=== PATIENT | female | born 1935 | race Two or more races ===

== ENCOUNTER 2022-07-14 12:12 | Day surgery (SDC) | payer OTHER ==
[2022-07-11 13:33] LABS: Basophils # (auto) 0.1 10 ^3/uL (0-0.2); Basophils % (auto) 1.2 % (0.0-2.0); Eosinophils # (auto) 0.2 10 ^3/uL (0-0.8); Eosinophils % (auto) 2.9 % (0.0-7.0); Hematocrit 33.7 % (36.0-46.0); Hemoglobin 11.2 g/dL (12.2-16.2); Lymphocytes # (auto) 1.6 10 ^3/uL (0.4-5.4); Lymphocytes % (auto) 23.9 % (10.0-50.0); Mean Corpuscular Hemoglobin 29.6 pg (28.0-32.0); Mean Corpuscular Hgb Conc. 33.2 g/dL (32.0-36.0); Mean Corpuscular Volume 89.4 fL (80.0-100.0); Monocytes # (auto) 0.4 10 ^3/uL (0-1.3); Neutrophils # (auto) 4.4 10 ^3/uL (1.6-8.6); Nucleated Red Blood Cells % 0.1 %; Red Blood Cells 3.77 10^6/uL (4.0-5.20); Red Cell Distribution Width 18.4 % (11.8-14.3); White Blood Cell 6.7 10^3/uL (4.4-10.8)
[2022-07-11 13:49] LABS: INR 0.94 (0.9-1.15); Partial Thromboplastin Time 24.8 sec (24.6-33.4)
[2022-07-11 14:10] LABS: Albumin 3.4 g/dL (3.4-5.0); Calcium 8.9 mg/dL (8.5-10.1); Potassium 3.8 mmol/L (3.5-5.1)
[2022-07-11 14:19] LABS: BUN/Creatinine Ratio 33.9 (10.0-20.0); Bilirubin, Total 0.4 mg/dL (0.2-1.0); Total Protein 6.6 g/dL (6.4-8.2)
[~2022-07-14] VITALS: Ht 154.9 cm; Wt 63.5 kg
[~2022-07-14 12:12] MED LIST: ACET325T82 PO; ACET5SOL5 PO; ALLO300T2 PO; ASPI1TAB20 PO; ATOR10TA PO; FURO1TAB33 PO; LEV50T PO; LISI20TA28 PO; MELA3TAB27 PO; METF-489 PO; OMEP20TA PO; ZINC50TA7 PO
[2022-07-14] MEDS ORDERED: LIDOCAINE VISCOUS 2% 15ML UD ONE (12:36)
[2022-07-14] MEDS ORDERED: diphenhdrAMINE HCL 50 MG/1 ML VL ONE (12:37)
[2022-07-14] MEDS: fentaNYL CITRATE 100 MCG/2 ML VL ONE ×2 (14:03→14:08)
[2022-07-14] MEDS: MIDAZOLAM HCL 2MG/2ML 2ml VIAL (1mg/ml) ONE ×2 (14:03→14:08)
[2022-07-14 15:03] VITALS: BP 116/49
== END 2022-07-14 15:05 | disposition home or self-care (01) ==
LOC: GI 12:12
PROVIDERS: ATTEND Internal Medicine Gastroenterology
DX: D64.9 Anemia, unspecified (principal); Z87.11 Personal history of peptic ulcer disease; K29.50 Unspecified chronic gastritis without bleeding; K44.9 Diaphragmatic hernia without obstruction or gangrene; Z20.822 Contact with and (suspected) exposure to COVID-19; E11.9 Type 2 diabetes mellitus without complications; Z79.84 Long term (current) use of oral hypoglycemic drugs
CPT/HCPCS: 36415; 43239; 80053; 82962; 85025; 85610; 85730; J1200; J2250; J3010; U0003; 99152

== ENCOUNTER → 2022-07-31 | Outpatient (CLI) | payer OTHER | END | disposition home or self-care (01) | LOC: LAB 06:56 | PROVIDERS: ATTEND Internal Medicine Gastroenterology | DX: R19.7 Diarrhea, unspecified (principal) | CPT/HCPCS: 85048; 87045; 87177; 87427; 87493 ==

== ENCOUNTER 2022-12-22 17:19 | Inpatient (IN) | payer OTHER ==
[~2022-12-22] VITALS: Ht 157.5 cm; Wt 68.0 kg
[~2022-12-22 17:19] MED LIST changes: -LISI20TA28 PO; +LISI20TA56 PO
[2022-12-22] MEDS: HYDROcodone-ACET 5/325MG TAB PO ONE ×2 (19:27→19:43)
[2022-12-22 20:22] LABS: Basophils # (auto) 0.1 10 ^3/uL (0-0.2); Basophils % (auto) 0.7 % (0.0-2.0); Eosinophils # (auto) 0.1 10 ^3/uL (0-0.8); Eosinophils % (auto) 1.7 % (0.0-7.0); Hematocrit 41.2 % (36.0-46.0); Hemoglobin 13.6 g/dL (12.2-16.2); Lymphocytes # (auto) 1.8 10 ^3/uL (0.4-5.4); Lymphocytes % (auto) 22.4 % (10.0-50.0); Mean Corpuscular Hemoglobin 30.1 pg (28.0-32.0); Mean Corpuscular Hgb Conc. 33.1 g/dL (32.0-36.0); Mean Corpuscular Volume 90.8 fL (80.0-100.0); Monocytes # (auto) 0.5 10 ^3/uL (0-1.3); Monocytes % (auto) 6.6 % (0.0-12.0); Neutrophils # (auto) 5.6 10 ^3/uL (1.6-8.6); Neutrophils % (auto) 68.6 % (37.0-80.0); Nucleated Red Blood Cells % 0.1 %; Red Blood Cells 4.54 10^6/uL (4.0-5.20); Red Cell Distribution Width 16.2 % (11.8-14.3); White Blood Cell 8.1 10^3/uL (4.4-10.8)
[2022-12-22 20:52] LABS: Alanine Aminotransferase 39 U/L (7-40); Albumin 4.4 g/dL (3.2-4.8); Alkaline Phosphatase 151 U/L (46-116); Anion Gap 8 (5-15); Aspartate Aminotransferase 17 U/L (13-40); BUN/Creatinine Ratio 50.7 (10.0-20.0); Bilirubin, Total 0.6 mg/dL (0.2-1.0); Blood Urea Nitrogen 71 mg/dL (9-23); Calcium 9.6 mg/dL (8.7-10.4); Carbon Dioxide 25 mmol/L (20-30); Chloride 104 mmol/L (98-107); Glucose 119 mg/dL (74-106); Sodium 137 mmol/L (136-145); Total Protein 6.6 g/dL (5.7-8.2)
[2022-12-22 21:30] VITALS: PULSE 60; RESP 13; O2SAT 95
[2022-12-22] MEDS ORDERED: SODIUM CHLORIDE 0.9% 1,000 ML IV ONE (22:15)
[2022-12-22] MEDS ORDERED: HYDROcodone-ACET 5/325MG TAB PO ONE (22:45)
[2022-12-22] MEDS ORDERED: DEXTROSE (50%) 50ML SYRG IV PRN (23:15)
[2022-12-22] MEDS ORDERED: HYDROcodone-ACET 5/325MG TAB PO PRN (23:15)
[2022-12-22] MEDS ORDERED: DOCUSATE SOD 100 MG CAP PO PRN (23:15)
[2022-12-22] MEDS ORDERED: SODIUM CHLORIDE 0.9% 1,000 ML IV SCH (23:15)
[2022-12-22] MEDS ORDERED: MORPHINE SULFATE INJ 2 MG/ml SYRG IV PRN (23:15)
[2022-12-22] MEDS ORDERED: ACETAMINOPHEN 500 MG TAB PO PRN (23:15)
[2022-12-22] MEDS ORDERED: ONDANSETRON HCL 4 MG/2 ML VIAL IV PRN (23:15)
[2022-12-22] MEDS ORDERED: NITROGLYCERIN 0.4 MG SL TAB SL PRN (23:15)
[2022-12-23] MEDS ORDERED: SODIUM CHLORIDE 0.9% 500 ML IV ONE (00:10)
[2022-12-23] MEDS: ACCU-CHEK COMFORT CURVE STRIP VI SCH ×6 (00:34→20:45)
[2022-12-23] MEDS: InsuLIN REG 1unit/0.01ml Soln (100units/ml) SC SCH ×6 (00:36→20:45)
[2022-12-23] MEDS: NOREPINEPHRINE 8 MG/250ML KIT 250 ML IV SCH (01:13)
[2022-12-23 02:10] VITALS: PULSE 56; RESP 12; O2SAT 96
[2022-12-23 05:58] LABS: Basophils # (auto) 0.1 10 ^3/uL (0-0.2); Basophils % (auto) 0.9 % (0.0-2.0); Eosinophils # (auto) 0.2 10 ^3/uL (0-0.8); Eosinophils % (auto) 2.9 % (0.0-7.0); Hematocrit 38.1 % (36.0-46.0); Hemoglobin 12.4 g/dL (12.2-16.2); Lymphocytes # (auto) 1.8 10 ^3/uL (0.4-5.4); Lymphocytes % (auto) 26.4 % (10.0-50.0); Mean Corpuscular Hemoglobin 29.9 pg (28.0-32.0); Mean Corpuscular Hgb Conc. 32.5 g/dL (32.0-36.0); Mean Corpuscular Volume 92.1 fL (80.0-100.0); Monocytes # (auto) 0.6 10 ^3/uL (0-1.3); Neutrophils # (auto) 4.1 10 ^3/uL (1.6-8.6); Neutrophils % (auto) 60.8 % (37.0-80.0); Nucleated Red Blood Cells % 0.1 %; Red Blood Cells 4.13 10^6/uL (4.0-5.20); Red Cell Distribution Width 16.1 % (11.8-14.3); White Blood Cell 6.8 10^3/uL (4.4-10.8)
[2022-12-23 06:07] LABS: Urine Bacteria FEW /hpf (None Seen); Urine Blood Negative /uL (Negative); Urine Clarity Clear (Clear); Urine Color Colorless (Yellow); Urine Protein, UAD Negative (Negative); Urine Specific Gravity 1.014 (1.001-1.035); Urine Urobilinogen Normal (Negative); Urine WBC 18 /hpf (0 - 5)
[2022-12-23 06:22] LABS: Alanine Aminotransferase 31 U/L (7-40); Albumin 3.9 g/dL (3.2-4.8); Alkaline Phosphatase 125 U/L (46-116); Anion Gap 6 (5-15); Aspartate Aminotransferase 17 U/L (13-40); BUN/Creatinine Ratio 37.5 (10.0-20.0); Carbon Dioxide 22 mmol/L (20-30); Chloride 109 mmol/L (98-107); Glucose 114 mg/dL (74-106); Potassium 4.6 mmol/L (3.5-5.1); Sodium 137 mmol/L (136-145)
[2022-12-23 06:23] LABS: Bilirubin, Total 0.5 mg/dL (0.2-1.0); Blood Urea Nitrogen 54 mg/dL (9-23); Total Protein 6.1 g/dL (5.7-8.2)
[2022-12-23 07:51] VITALS: PULSE 54; RESP 9; O2SAT 100
[2022-12-23] MEDS: ASPirin 81 mg TAB PO SCH (09:28)
[2022-12-23] MEDS: FAMOTIDINE (10MG/ML) 2ML VL IV SCH ×2 (09:28→22:17)
[2022-12-23] MEDS: SODIUM CHLORIDE 0.9% 1,000 ML IV SCH ×2 (12:54→22:30)
[2022-12-23] MEDS ORDERED: IOHEXOL 350 MG/ML 100ML IJ ONE (13:00)
[2022-12-23 16:36] LABS: COVID19 ANTIGEN SOFIA FIA NEGATIVE (NEGATIVE)
[2022-12-23] MEDS ORDERED: ATORVASTATIN 20 MG TAB PO SCH (22:00)
[2022-12-23] MEDS ORDERED: NITROGLYCERIN 2% OINT 1GM PKG TD ONE (22:15)
[2022-12-24] MEDS: NOREPINEPHRINE 8 MG/250ML KIT 250 ML IV SCH (00:45)
[2022-12-24] MEDS: ACCU-CHEK COMFORT CURVE STRIP VI SCH ×4 (03:31→12:07)
[2022-12-24] MEDS: InsuLIN REG 1unit/0.01ml Soln (100units/ml) SC SCH ×4 (03:31→12:00)
[2022-12-24 05:00] VITALS: BP 101/45; PULSE 58; RESP 14; TEMP 97.5; O2SAT 98
[2022-12-24 08:00] VITALS: PULSE 54
[2022-12-24 08:05] VITALS: PULSE 63; RESP 17; O2SAT 100
[2022-12-24] MEDS: SODIUM CHLORIDE 0.9% 1,000 ML IV SCH (08:26)
[2022-12-24 09:00] VITALS: BP 113/45; PULSE 63; RESP 17; TEMP 97.9; O2SAT 100
[2022-12-24] MEDS: FAMOTIDINE (10MG/ML) 2ML VL IV SCH (09:14)
[2022-12-24] MEDS: ASPirin 81 mg TAB PO SCH (09:14)
[2022-12-24 10:09] LABS: Basophils # (auto) 0 10 ^3/uL (0-0.2); Basophils % (auto) 0.8 % (0.0-2.0); Eosinophils # (auto) 0.2 10 ^3/uL (0-0.8); Eosinophils % (auto) 2.6 % (0.0-7.0); Hematocrit 36.2 % (36.0-46.0); Hemoglobin 11.8 g/dL (12.2-16.2); Mean Corpuscular Hemoglobin 29.9 pg (28.0-32.0); Mean Corpuscular Hgb Conc. 32.5 g/dL (32.0-36.0); Mean Corpuscular Volume 91.8 fL (80.0-100.0); Monocytes # (auto) 0.4 10 ^3/uL (0-1.3); Neutrophils # (auto) 4.5 10 ^3/uL (1.6-8.6); Neutrophils % (auto) 73.6 % (37.0-80.0); Nucleated Red Blood Cells % 0.1 %; Red Blood Cells 3.95 10^6/uL (4.0-5.20); Red Cell Distribution Width 16.2 % (11.8-14.3)
[2022-12-24 10:33] LABS: Chloride 110 mmol/L (98-107); Sodium 142 mmol/L (136-145)
[2022-12-24 10:34] LABS: Anion Gap 7 (5-15); Carbon Dioxide 25 mmol/L (20-30)
[2022-12-24 10:39] LABS: BUN/Creatinine Ratio 36.3 (10.0-20.0); Glucose 175 mg/dL (74-106)
[2022-12-24 10:40] LABS: Blood Urea Nitrogen 41 mg/dL (9-23)
[2022-12-24 14:08] VITALS: BP 104/48; PULSE 54; RESP 17; TEMP 97.6; O2SAT 97
== END 2022-12-24 15:07 | disposition home or self-care (01) | DRG 300 ==
LOC: ER 17:19 → TELE 23:16 → TELE-EAST 12-24 03:58
PROVIDERS: ADMIT Nurse Practitioner Family; ATTEND Nurse Practitioner Family
DX: I71.22 Aneurysm of the aortic arch, without rupture (principal); K86.2 Cyst of pancreas; N17.9 Acute kidney failure, unspecified; E07.9 Disorder of thyroid, unspecified; E11.9 Type 2 diabetes mellitus without complications; E78.5 Hyperlipidemia, unspecified; E86.0 Dehydration; I10 Essential (primary) hypertension; Y93.01 Activity, walking, marching and hiking; W01.0XXA Fall on same level from slipping, tripping and stumbling without subsequent striking against object, initial encounter; Z20.822 Contact with and (suspected) exposure to COVID-19; I95.9 Hypotension, unspecified; M25.522 Pain in left elbow; M25.562 Pain in left knee; M54.2 Cervicalgia; R55 Syncope and collapse; R77.8 Other specified abnormalities of plasma proteins; Y99.8 Other external cause status; Y92.098 Other place in other non-institutional residence as the place of occurrence of the external cause
CPT/HCPCS: 36415; 70450; 71250; 71275; 72125; 73080; 73562; 74176; 80048; 80053; 81001; 82962; 83036; 84484; 85025; 87426; 93005; 93306; 97163; G0378; J1815; J3490

== ENCOUNTER → 2023-02-26 | Outpatient (CLI) | payer OTHER ==
[~2023-02-26] MED LIST changes: -ASPI1TAB20 PO; -METF-489 PO
== END | disposition home or self-care (01) ==
LOC: XYW 13:37
PROVIDERS: ATTEND Student in an Organized Health Care Education/Training Program
DX: Z01.810 Encounter for preprocedural cardiovascular examination (principal); R60.0 Localized edema; I08.3 Combined rheumatic disorders of mitral, aortic and tricuspid valves
CPT/HCPCS: 93306

== ENCOUNTER → 2023-04-20 | Outpatient (CLI) | payer OTHER ==
[~2023-04-20] VITALS: Ht 154.9 cm; Wt 69.9 kg
[~2023-04-20] MED LIST changes: +ADENOSINE 59 MG in GIVE UN-DILUTED 0 ML IV ONE
== END | disposition home or self-care (01) ==
LOC: XYW 08:42
PROVIDERS: ATTEND Student in an Organized Health Care Education/Training Program
DX: Z01.810 Encounter for preprocedural cardiovascular examination (principal); I71.22 Aneurysm of the aortic arch, without rupture; I71.40 Abdominal aortic aneurysm, without rupture, unspecified; I10 Essential (primary) hypertension; R60.0 Localized edema; E78.5 Hyperlipidemia, unspecified
CPT/HCPCS: 78452; 93017; A9500; J0153

== ENCOUNTER → 2024-01-24 | Outpatient (CLI) | payer OTHER ==
[~2024-01-24] MED LIST changes: +ACET-2058 PO; -ACET5SOL5 PO; -ADENOSINE 59 MG in GIVE UN-DILUTED 0 ML IV ONE; -LEV50T PO; +LEVO-848 PO
[2024-01-24 13:08] LABS: Basophils # (auto) 0.1 10 ^3/uL (0-0.2); Basophils % (auto) 0.9 % (0.0-2.0); Eosinophils # (auto) 0.2 10 ^3/uL (0-0.8); Eosinophils % (auto) 3.4 % (0.0-7.0); Hematocrit 38.4 % (36.0-46.0); Hemoglobin 12.7 g/dL (12.2-16.2); Lymphocytes # (auto) 1.8 10 ^3/uL (0.4-5.4); Mean Corpuscular Hemoglobin 30.5 pg (28.0-32.0); Mean Corpuscular Hgb Conc. 33.2 g/dL (32.0-36.0); Mean Corpuscular Volume 91.8 fL (80.0-100.0); Monocytes # (auto) 0.4 10 ^3/uL (0-1.3); Monocytes % (auto) 6.6 % (0.0-12.0); Neutrophils # (auto) 3.9 10 ^3/uL (1.6-8.6); Neutrophils % (auto) 61.1 % (37.0-80.0); Platelet Count (auto) 214 10^3/uL (140-450); Red Blood Cells 4.18 10^6/uL (4.0-5.20); Red Cell Distribution Width 16.3 % (11.8-14.3); White Blood Cell 6.4 10^3/uL (4.4-10.8)
[2024-01-24 13:23] LABS: INR 1.03 (0.9-1.15); Partial Thromboplastin Time 25.5 SEC (24.5-34.5); Prothrombin Time 10.9 sec (9.3-11.8)
[2024-01-24 13:50] LABS: Alanine Aminotransferase 22 U/L (7-40); Albumin 4.4 g/dL (3.2-4.8); Alkaline Phosphatase 127 U/L (46-116); Anion Gap 8 (5-15); Aspartate Aminotransferase 18 U/L (13-40); BUN/Creatinine Ratio 34.1 (10.0-20.0); Blood Urea Nitrogen 42 mg/dL (9-23); Calcium 9.5 mg/dL (8.7-10.4); Carbon Dioxide 26 mmol/L (20-31); Chloride 107 mmol/L (98-107); Glucose 126 mg/dL (74-106); Potassium 4.5 mmol/L (3.5-5.1); Sodium 141 mmol/L (136-145)
[2024-01-24 13:51] LABS: Bilirubin, Total 0.6 mg/dL (0.2-1.0); Total Protein 6.6 g/dL (5.7-8.2)
== END | disposition home or self-care (01) ==
LOC: LAB 12:26
DX: I71.23 Aneurysm of the descending thoracic aorta, without rupture (principal)
CPT/HCPCS: 36415; 80053; 84443; 85025; 85610; 85730

== ENCOUNTER → 2024-02-05 | Outpatient (CLI) | payer OTHER ==
[2024-02-05 12:30] LABS: Anion Gap 6 (5-15); Carbon Dioxide 28 mmol/L (20-31); Chloride 111 mmol/L (98-107); Potassium 4.1 mmol/L (3.5-5.1); Sodium 145 mmol/L (136-145)
[2024-02-05 12:31] LABS: Calcium 9.5 mg/dL (8.7-10.4)
[2024-02-05 12:36] LABS: BUN/Creatinine Ratio 26.9 (10.0-20.0); Blood Urea Nitrogen 32 mg/dL (9-23); Glucose 123 mg/dL (74-106)
== END | disposition home or self-care (01) ==
LOC: LAB 11:32
PROVIDERS: ATTEND Nurse Practitioner Family
DX: I71.23 Aneurysm of the descending thoracic aorta, without rupture (principal)
CPT/HCPCS: 36415; 80048

== ENCOUNTER 2024-05-09 10:29 | Inpatient (IN) | payer OTHER ==
[~2024-05-09] VITALS: Ht 149.9 cm; Wt 72.7 kg
--- NOTE | 2024-05-09 11:11 | ED.PDOC ---
GI ASSESSMENT HPI Comments 88 year old female presents to the ED with chief complaint of abdominal pain. Patient reports that she has been experiencing 10/10 diffuse abdominal pain worsened with movement for the past 2 days and with associated radiation to her back. Patient relays that her pain was sudden and is relieved when sitting down. Patient denies any N/V/D, fever, chills, dysuria, hematuria, dizziness, or chest pain. Time Seen by MD: 11:08 Primary Care Provider: unknown Reviewed Notes: Nurses Notes, Medications, Allergies Allergies: Coded Allergies: NO KNOWN ALLERGIES (Unverified , 07/13/22) Home Meds Reported Medications Zinc Gluconate (Zinc) 50 Mg Tab, 50 MG PO DAILY, TAB 07/13/22 Omeprazole (Gnp Omeprazole) 20 Mg Tab, 40 MG PO AC, TAB 07/13/22 Melatonin (KP MELATONIN) 3 Mg Tab, 10 MG PO QPM, TAB 07/13/22 Lisinopril (Lisinopril) 20 Mg Tab, 20 MG PO DAILY, TAB 07/13/22 Levothyroxine Sodium (SYNTHROID TABLET) 50 Mcg Tb, 50 MCG PO DAILY, TAB 07/13/22 Furosemide (Lasix) 20 Mg Tb, 20 MG PO DAILY, TAB 07/13/22 Atorvastatin Calcium (Lipitor) 10 Mg Tab, 10 MG PO DAILY, TAB 07/13/22 Allopurinol (Allopurinol) 300 Mg Tab, 300 MG PO DAILY, TAB 07/13/22 Acetaminophen (Apap) 325 Mg Tab, 500 MG PO Q6HP, TAB 07/13/22 Acetaminophen (Acetaminophen) 160 Mg/5 Ml Rachael, 5 ML PO Q4HR, #120 ML 07/13/22 Information Source: Patient Mode of Arrival: Wheelchair Timing: Days Duration: Since onset Prehospital treatment: None Quality: Aching Vomitus: None Stool: Normal Severity: Moderate Recent: None Recent Hx of: None Pain Location: Diffuse Modifying Factors: Nothing Associated sign and symptoms: Abdominal Pain Past Medical History PAST MEDICAL HISTORY: DM, High Lipids, HTN Surgical History: Appendectomy, Hysterectomy, Thyroidectomy Surgical History (Other): Cataract surgery [employer] History: No Pertinent [employer] History Family History Family History: Reviewed,noncontributory to illness Family History (Other): Arthritis Social History Smoker: Non-Smoker Alcohol: Occasionally Drugs: Denies Drug Use Lives In: Home Constitutional: denies: chills, diaphoresis, fatigue, fever, malaise, sweats, weakness, others EENTM: denies: blurred vision, double vision, ear bleeding, ear discharge, ear drainage, ear pain, ear ringing, eye pain, eye redness, hearing loss, mouth pa in, mouth swelling, nasal discharge, nose bleeding, nose congestion, nose pain, photophobia, tearing, throat pain, throat swelling, voice changes, others Respiratory: denies: cough, hemoptysis, orthopnea, SOB at rest, shortness of breath, SOB with excertion, stridor, wheezing, others Cardiovascular: denies: chest pain, dizzy spells, diaphoresis, Dyspnea on exertion, edema, irregular heart beat, left arm pain, lightheadedness, palpitations, PND, syncope, others Gastrointestinal: reports: abdominal pain; denies: abdomen distended, blood streaked bowels, constipated, diarrhea, dysphagia, difficulty swallowing, hematemesis, melena, nausea, poor appetite, poor fluid intake, rectal bleeding, rectal pain, vomiting, others Genitourinary: denies: abnormal vagina bleeding, burning, dyspareunia, dysuria, flank pain, frequency, hematuria, incontinence, pain, , vagina discharge, urgency, others Neurological: denies: dizziness, fainting, headache, left sided numbness, left sided weakness, numbness, paresthesia, pre-existing deficit, right sided numbness, right sided weakness, seizure, speech problems, tingling, tremors, weakness, others Musculoskeletal: reports: back pain; denies: gout, joint pain, joint swelling, muscle pain, muscle stiffness, neck pain, others Integumetry: denies: bruises, change in color, change in hair/nails, dryness, laceration, lesions, lumps, rash, wounds, others Allergic/Immunocompromised: denies: Difficulty Healing, Frequent Infections, Hives, Itching, others Hematologic/Lymphatic: denies: anemia, blood clots, easy bleeding, easy bruising, swollen glands, others Endocrine: denies: excessive hunger, excessive sweating, excessive thirst, excessive urination, flushing, intolerance to cold, intolerance to heat, unexplained weight gain, unexplained weight loss, others Psychiatric: denies: anxiety, bipolar disorder, depression, hopeless, panic di sorder, schizophrenia, sleepless, suicidal, others All Other Systems: Reviewed and Negative Physical Exam General Appearance: Moderate Distress HEENT: Normal ENT Inspection, Pharynx Normal, TMs Normal Neck: Full Range of Motion, Non-Tender, Normal, Normal Inspection Respiratory: Chest Non-Tender, Lungs Clear, No Accessory Muscle Use, No Respiratory Distress, Normal Breath Sounds Cardiovascular: No Edema, No JVD, No Murmur, No Gallop, Normal Peripheral Pulses, Regular Rate/Rhythm Breast Exam: Deferred Gastrointestinal: Diffuse, No Organomegaly, No Pulsatile Mass, Normal Bowel Sounds, Soft, Tenderness Genitalia: Deferred Pelvic: Deferred Rectal: Deferred Extremities: No calf tenderness, Normal capillary refill, Normal inspection, Normal range of motion, Non-tender, No pedal edema Musculoskeletal : Apperance: Normal Neurologic: Alert, addiction nurse II-XII nml as Tested, No Motor Deficits, Normal Affect, Normal Mood, No Sensory Deficits Cerebellar Function: Normal Reflexes: Normal Skin: Dry, Normal Color, Warm Lymphatic: No Adenopathy EKG EKG : Pulse Rate (adult): 66 [place]: LAD Cardiac Rhythm: NSR Block: None Hypertrophy: None ST: Normal Comments Low Voltage Was a procedure done? Was a procedure done?: No GI differential Dx Differential Diagnosis: Appendicitis, Diverticular disease, Gastritis/PUD, Gastroenteritis X-Ray, Labs, Meds, VS Vital Signs Date Time Temp Pulse Resp B/P (MAP) Pulse Ox O2 Delivery O2 Flow Rate FiO2 05/09/24 11:18 66 05/09/24 11:11 98.1 65 19 117/57 (77) 96 Lab Test 05/09/24 11:35 05/09/24 11:07 Range/Units White Blood Count 9.7 4.4-10.8 10^3/uL Red Blood Count 4.61 4.0-5.20 10^6/uL Hemoglobin 13.9 12.2-16.2 g/dL Hematocrit 43.1 36.0-46.0 % Mean Corpuscular Volume 93.5 80.0-100.0 fL Mean Corpuscular Hemoglobin 30.3 28.0-32.0 pg Mean Corpuscular Hemoglobin Concent 32.4 32.0-36.0 g/dL Red Cell Distribution Width 16.2 H 11.8-14.3 % Platelet Count 172 140-450 10^3/uL Mean Platelet Volume 9.2 6.9-10.8 fL Neutrophils (%) (Auto) 77.6 37.0-80.0 % Lymphocytes (%) (Auto) 14.3 10.0-50.0 % Monocytes (%) (Auto) 6.3 0.0-12.0 % Eosinophils (%) (Auto) 1.3 0.0-7.0 % Basophils (%) (Auto) 0.5 0.0-2.0 % Neutrophils # (Auto) 7.5 1.6-8.6 10 ^3/uL Lymphocytes # (Auto) 1.4 0.4-5.4 10 ^3/uL Monocytes # (Auto) 0.6 0-1.3 10 ^3/uL Eosinophils # (Auto) 0.1 0-0.8 10 ^3/uL Basophils # (Auto) 0 0-0.2 10 ^3/uL Nucleated Red Blood Cells 0.1 % Sodium Level 141 136-145 mmol/L Potassium Level 4.1 3.5-5.1 mmol/L Chloride Level 106 98-107 mmol/L Carbon Dioxide Level 26 20-31 mmol/L Anion Gap 9 5-15 Blood Urea Nitrogen 34 H 9-23 mg/dL Creatinine 1.00 0.550-1.02 mg/dL Glomerular Filtration Rate Calc 55 >90 mL/min BUN/Creatinine Ratio 34.0 H 10.0-20.0 Serum Glucose 112 H 74-106 mg/dL Calcium Level 10.0 8.7-10.4 mg/dL Total Bilirubin 1.0 0.2-1.0 mg/dL Aspartate Amino Transferase (AST) 21 13-40 U/L Alanine Aminotransferase (ALT) 25 7-40 U/L Alkaline Phosphatase 121 H 46-116 U/L Total Protein 6.7 5.7-8.2 g/dL Albumin 4.7 3.2-4.8 g/dL Lipase 26 12-53 U/L Urine Color Light-yellow Yellow Urine Clarity Clear Clear Urine pH 5.5 5.0-9.0 Urine Specific [place] 1.015 1.001-1.035 Urine Protein Negative Negative Urine Ketones Negative Negative Urine Blood Negative Negative /uL Urine Nitrite Negative Negative Urine Bilirubin Negative Negative Urine Urobilinogen Normal Negative mg/dL Urine Leukocyte Esterase 1+ Negative /uL Urine RBC 1 0 - 4 /hpf Urine Microscopic WBC 2 0-5 /HPF Urine Squamous Epithelial Cells Few <5 /hpf Urine Bacteria None seen None Seen /hpf Urine Glucose Normal Normal mg/dL CT Abd/Pel indicates: 1. Acute sigmoid diverticulitis. There is no evidence of an organized pericolonic fluid collection. There is no significant free air. 2. Stable 2.4 cm cystic structure in the pancreatic uncinate region probably a pseudocyst. 3. Stable ectatic appearance of the abdominal aorta with calcified atherosclerotic changes. Critical findings discussed with the clinical service by Dr. Tramaine Santamaria via tayler jackson on 05/09/2024 12:10 PM. At this time, the patient was being admitted to the hospitalist The patient's CBC is within normal limits The chemistry panel is within normal limits The urine test is positive for 1+ leukocyte esterase The patient was started on Flagyl 500 mg IV piggyback for the acute diverticulitis The patient was being admitted at this time Images Reviewed?: Images reviewed and evaluated by me Time of 1ST Reevaluation: 12:11 Reevaluation 1ST: Unchanged Patient Education/Counseling: Diagnosis, Treatment, Prognosis Family Education/Counseling: No Family Present Additional Information - I reviewed the following notes from patient's past medical encounters: 12/22/22 for fall injury - The following tests were ordered, and results were reviewed by me: (Labs, X- Ray, EKG): CBC, CMP, Lipase, UA, CT Abd/Pel - Additional information was gathered from interviewing the following independent Historian: (Family, Other Providers, EMT): None - I reviewed and agreed with the following test results read by other provider: (X-ray, CT, US): CT Abd/Pel - I discussed treatments and results with medical personnel. Departure 1 Departure Time of Disposition: 12:11 Impression: Primary Impression: Intractable abdominal pain Additional Impression: Acute diverticulitis Disposition: ADMITTED INPATIENT Admit to: Med Surg Condition: Fair Critical Care Note Critical Care Time?: No Stability Stability form required: Yes Unstable for transfer: ED Physician Assesment (Clinical assesment) Heart Score Heart Score: Heart Score Response (Comments) Value History N/A 0 EKG N/A 0 Age N/A 0 Risk Factors N/A 0 Troponin N/A 0 Total 0 I personally scribed for NEERAJ JENNINGS MD ([email or web address]) on 05/09/24 at 11:10. Electronically submitted by Filiberto Wong ([email or web address]). I personally scribed for NEERAJ JENNINGS MD ([email or web address]) on 05/09/24 at 11:11. Electronically submitted by Filiberto Wong ([email or web address]). I personally scribed for NEERAJ JENNINGS MD ([email or web address]) on 05/09/24 at 11:18. Electronically submitted by Filiberto Wong ([email or web address]). I personally scribed for NEERAJ JENNINGS MD ([email or web address]) on 05/09/24 at 12:46. Electronically submitted by Filiberto Wong ([email or web address]). NEERAJ JENNINGS MD May 09, 2024 11:10
[2024-05-09 11:52] LABS: Urine Bacteria None Seen /hpf (None Seen)
--- NOTE | 2024-05-09 12:13 | DVH ---
CT ABDOMEN AND PELVIS WITHOUT CONTRAST CLINICAL HISTORY: pain TECHNIQUE: Multiple contiguous axial images of the abdomen and pelvis without intravenous contrast. The images were reformatted degenerate coronal and sagittal reconstructions. All CT scans at this medical facility are performed using dose modulation techniques as appropriate t o a performed exam including the following:Automated exposure control was utilized; adjustment of the MA and/or KV according to patient size; and use of iterative reconstruction technique. Radiation Dose Information: CT Dose: CTDI volume is 21 mGy. Dose-length product is 987 mGy*cm Comparison: CT CHST AB PEL WO CON-NO IV/ORAL on DOS: 12/22/22, CT CHST AB PEL WO CON-NO IV/ORAL on DOS : 12/22/22 FINDINGS: Evaluation of the abdomen and pelvis is limited without intravenous contrast. The small and large bowel loops demonstrate normal caliber. There are multiple diverticula in the di stal colon. There is irregular wall thickening with surrounding fat stranding in the sigmoid colon co mpatible with acute diverticulitis. There is no evidence of an organized pericolonic fluid collection . There is no significant free air. The stomach appears within normal limits. There is a stable 2.4 cm cystic structure in the pancreatic uncinate region. The liver, gallbladder , kidneys, adrenal glands, and spleen appear within normal limits. There is no gross evidence of abdominal lymphadenopathy. There is no free fluid or free air. There is stable ectatic appearance of the abdominal aorta with calcified atherosclerotic changes. Th e IVC appears within normal limits. The bladder appears unremarkable for the degree of distention. Uterus is surgically absent.. There i s no gross evidence of a pelvic mass. There is no free fluid collection. Lung bases are clear. There is no acute osseous abnormality. IMPRESSION: 1. Acute sigmoid diverticulitis. There is no evidence of an organized pericolonic fluid collection. T here is no significant free air. 2. Stable 2.4 cm cystic structure in the pancreatic uncinate region probably a pseudocyst. 3. Stable ectatic appearance of the abdominal aorta with calcified atherosclerotic changes. Critical findings discussed with the clinical service by Dr. Tramaine Santamaria via phone on 05/09/2024 12: 10 PM. HS:Y
[2024-05-09 12:20] LABS: Urine Blood Negative /uL (Negative); Urine Clarity Clear (Clear); Urine Color Light-Yellow (Yellow); Urine Protein, UAD Negative (Negative); Urine Specific Gravity 1.015 (1.001-1.035); Urine Squamous Epithelial Cell FEW /hpf (<5); Urine Urobilinogen Normal (Negative); Urine WBC 2 /HPF (0-5); Urine pH 5.5 (5.0-9.0)
[2024-05-09 12:26] LABS: Alanine Aminotransferase 25 U/L (7-40); Albumin 4.7 g/dL (3.2-4.8); Anion Gap 9 (5-15); Aspartate Aminotransferase 21 U/L (13-40); Carbon Dioxide 26 mmol/L (20-31); Chloride 106 mmol/L (98-107); Lipase 26 U/L (12-53); Potassium 4.1 mmol/L (3.5-5.1); Sodium 141 mmol/L (136-145)
[2024-05-09 12:27] LABS: Total Protein 6.7 g/dL (5.7-8.2)
[2024-05-09 12:31] LABS: Alkaline Phosphatase 121 U/L (46-116); Blood Urea Nitrogen 34 mg/dL (9-23); Glucose 112 mg/dL (74-106)
[2024-05-09 12:38] LABS: Basophils # (auto) 0 10 ^3/uL (0-0.2); Basophils % (auto) 0.5 % (0.0-2.0); Eosinophils # (auto) 0.1 10 ^3/uL (0-0.8); Eosinophils % (auto) 1.3 % (0.0-7.0); Hematocrit 43.1 % (36.0-46.0); Hemoglobin 13.9 g/dL (12.2-16.2); Lymphocytes # (auto) 1.4 10 ^3/uL (0.4-5.4); Lymphocytes % (auto) 14.3 % (10.0-50.0); Mean Corpuscular Hemoglobin 30.3 pg (28.0-32.0); Mean Corpuscular Hgb Conc. 32.4 g/dL (32.0-36.0); Mean Corpuscular Volume 93.5 fL (80.0-100.0); Monocytes # (auto) 0.6 10 ^3/uL (0-1.3); Monocytes % (auto) 6.3 % (0.0-12.0); Neutrophils # (auto) 7.5 10 ^3/uL (1.6-8.6); Neutrophils % (auto) 77.6 % (37.0-80.0); Nucleated Red Blood Cells % 0.1 %; Platelet Count (auto) 172 10^3/uL (140-450); Red Blood Cells 4.61 10^6/uL (4.0-5.20); Red Cell Distribution Width 16.2 % (11.8-14.3); White Blood Cell 9.7 10^3/uL (4.4-10.8)
[2024-05-09] MEDS: metroNIDAZOLE 500MG/100ML 100 ML IV ONE (15:46)
--- NOTE | 2024-05-09 17:19 | DVHHP2 ---
History of Present Illness Reason for Visit: Abdominal pain History of Present Illness 88-year-old female presented to the ED with chief complaint of abdominal pain. Patient reports that she has been experiencing 10/10 diffuse abdominal pain which is worse when she walks. Patient states sometimes when she eats it makes her stomach her more but not always. Patient states she has noticed her bowel movements have been thinner. No blood or melena noted to bowel movements. Abdomen is not tender on palpitation, patient states she has also had some urination dribbling with some dysuria, she denies nausea vomiting diarrhea, no fever chills, hematuria, dizziness or chest pain. Patient's CT abdomen/pelvis shows acute sigmoid diverticulitis. GI is consulted and antibiotics are started. Admitting to medical/surgical floor. Past Medical History Hyperlipidemia, hypertension, hypothyroid, gout Past Surgical History Appendectomy, Hysterectomy, Thyroidectomy Family History no Pertinent history Smoke: No ALCOHOL: rare Drugs: None Lives: with Family Review of Systems Constitutional: No: Fever, Chills, Sweats, Weakness, Malaise, Other Eyes: No: Pain, Vision change, Conjunctivae inflammation, Eyelid inflammation, Other, Redness ENT: No: Ear pain, Ear discharge, Nose pain, Nose discharge, Nose congestion, Mouth pain, Mouth swelling, Throat pain, Throat swelling, Other Respiratory: No: Cough, Dry, Shortness of breath, SOB with excertion, Wheezing, Hemoptysis, Pleuritic Pain, Sputum, Wheezing, Other Cardiovascular: No: Chest Pain, Palpitations, Orthopnea, Paroxysmal Noc. Dyspnea, Edema, Lt Headedness, Other Gastrointestinal: Abdominal Pain; No: Nausea, Vomiting, Diarrhea, Constipation, Melena, Hematochezia, Other Genitourinary: Dysuria, Frequency; No Incontinence, No Hematuria, No Retention, No Other Musculoskeletal: No: other, neck pain, shoulder pain, arm pain, back pain, hand pain, leg pain, foot pain Skin: No: Rash, Lesions, Jaundice, Bruising, Other Neurological: No: Weakness, Numbness, Incoordination, Change in speech, Confusion, Seizures, Other Allergies: Coded Allergies: NO KNOWN ALLERGIES (Unverified , 07/13/22) Exam Vital Signs Vital Signs Date Time Temp Pulse Resp B/P (MAP) Pulse Ox O2 Delivery O2 Flow Rate FiO2 05/09/24 11:18 66 05/09/24 11:11 98.1 19 117/57 (97) 96 General Appearance: Alert, Oriented X3, Cooperative, No acute distress HEENT: Atraumatic, PERRLA, EOMI, Mucous membr. moist/pink Respiratory: Clear to auscultation, Normal air movement Cardiovascular: Regular rate, Normal S1, Normal S2, No murmurs Abdominal: Normal bowel sounds, Soft, No hepatospenomegaly, No masses, Other (Slight tenderness noted to the abdomen diffusely) Extremities: No clubbing, No cyanosis, No edema, Normal pulses, No tenderness/swelling Skin: No rashes, No breakdown, No significant lesion Neuro: Normal gait, Normal speech, Strength at 5/5 X4 ext, Normal tone, Sensation intact, Cranial nerves 3-12 NL, Reflexes 2+ Psych/Mental Status: Mental status NL, Mood NL Labs/Xrays Reviewed Labs Test 05/09/24 11:35 05/09/24 11:07 Range/Units White Blood Count 9.7 4.4-10.8 10^3/uL Red Blood Count 4.61 4.0-5.20 10^6/uL Hemoglobin 13.9 12.2-16.2 g/dL Hematocrit 43.1 36.0-46.0 % Mean Corpuscular Volume 93.5 80.0-100.0 fL Mean Corpuscular Hemoglobin 30.3 28.0-32.0 pg Mean Corpuscular Hemoglobin Concent 32.4 32.0-36.0 g/dL Red Cell Distribution Width 16.2 H 11.8-14.3 % Platelet Count 172 140-450 10^3/uL Mean Platelet Volume 9.2 6.9-10.8 fL Neutrophils (%) (Auto) 77.6 37.0-80.0 % Lymphocytes (%) (Auto) 14.3 10.0-50.0 % Monocytes (%) (Auto) 6.3 0.0-12.0 % Eosinophils (%) (Auto) 1.3 0.0-7.0 % Basophils (%) (Auto) 0.5 0.0-2.0 % Neutrophils # (Auto) 7.5 1.6-8.6 10 ^3/uL Lymphocytes # (Auto) 1.4 0.4-5.4 10 ^3/uL Monocytes # (Auto) 0.6 0-1.3 10 ^3/uL Eosinophils # (Auto) 0.1 0-0.8 10 ^3/uL Basophils # (Auto) 0 0-0.2 10 ^3/uL Nucleated Red Blood Cells 0.1 % Sodium Level 141 136-145 mmol/L Potassium Level 4.1 3.5-5.1 mmol/L Chloride Level 106 98-107 mmol/L Carbon Dioxide Level 26 20-31 mmol/L Anion Gap 9 5-15 Blood Urea Nitrogen 34 H 9-23 mg/dL Creatinine 1.00 0.550-1.02 mg/dL Glomerular Filtration Rate Calc 55 >90 mL/min BUN/Creatinine Ratio 34.0 H 10.0-20.0 Serum Glucose 112 H 74-106 mg/dL Calcium Level 10.0 8.7-10.4 mg/dL Total Bilirubin 1.0 0.2-1.0 mg/dL Aspartate Amino Transferase (AST) 21 13-40 U/L Alanine Aminotransferase (ALT) 25 7-40 U/L Alkaline Phosphatase 121 H 46-116 U/L Total Protein 6.7 5.7-8.2 g/dL Albumin 4.7 3.2-4.8 g/dL Lipase 26 12-53 U/L Urine Color Light-yellow Yellow Urine Clarity Clear Clear Urine pH 5.5 5.0-9.0 Urine Specific [place] 1.015 1.001-1.035 Urine Protein Negative Negative Urine Ketones Negative Negative Urine Blood Negative Negative /uL Urine Nitrite Negative Negative Urine Bilirubin Negative Negative Urine Urobilinogen Normal Negative mg/dL Urine Leukocyte Esterase 1+ Negative /uL Urine RBC 1 0 - 4 /hpf Urine Microscopic WBC 2 0-5 /HPF Urine Squamous Epithelial Cells Few <5 /hpf Urine Bacteria None seen None Seen /hpf Urine Glucose Normal Normal mg/dL Assessment/Plan Assessment/Plan Acute sigmoid diverticulitis Admit to medical-surgical Antibiotics Rocephin/Flagyl Consult GI Clear liquid diet for bowel rest Encourage p.o. hydration Pain medication p.r.n./Zofran p.r.n. Chronic benign Hypertension Continue home medications Lisinopril, Lasix Rule out UTI Leukocytes present with no bacteria Chronic Hypothyroid Continue home levothyroxine GI/VTE PPX Protonix Patient ambulatory-defer Lovenox Plan discussed with: Patient Date of Service: May 09, 2024 Billing Provider: SERGIO LUONG Common Visit Codes: [id number] INP/OBS CARE(HIGH) SERGIO LUONG May 09, 2024 17:19
[2024-05-09] MEDS ORDERED: ONDANSETRON HCL 4 MG/2 ML VIAL IV PRN (17:30)
[2024-05-09] MEDS ORDERED: MORPHINE SULFATE INJ 2 MG/ml SYRG IV PRN (17:30)
[2024-05-09] MEDS ORDERED: NITROGLYCERIN 0.4 MG SL TAB SL PRN (17:30)
[2024-05-09] MEDS: cefTRIAXone 1GM/50ML D5W 50 ML IV SCH (17:51)
[2024-05-09] MEDS: HYDROcodone-ACET 5/325MG TAB PO PRN (18:59)
[2024-05-09 19:45] VITALS: PULSE 89; RESP 16; O2SAT 95
[2024-05-09] MEDS: SODIUM CHLORIDE 0.9% 1,000 ML IV SCH (20:01)
[2024-05-09 22:20] VITALS: BP 116/77; PULSE 74; RESP 17; TEMP 98; O2SAT 95
[2024-05-09] MEDS: MELATONIN 5 MG TAB PO SCH (22:59)
[2024-05-09] MEDS: ATORVASTATIN 20 MG TAB PO SCH (23:00)
[2024-05-09] MEDS: metroNIDAZOLE 500MG/100ML 100 ML IV SCH (23:01)
[2024-05-10 01:00] VITALS: BP 113/56; PULSE 65; RESP 12; TEMP 97.7; O2SAT 97
[2024-05-10 05:00] VITALS: BP 115/56; PULSE 66; RESP 18; TEMP 98; O2SAT 95
[2024-05-10] MEDS: PANTOPRAZOLE 40 MG TAB PO SCH (06:34)
[2024-05-10] MEDS: LEVOTHYROXINE SODIUM 50 MCG TAB PO SCH (06:34)
[2024-05-10 07:07] LABS: Anion Gap 7 (5-15); Carbon Dioxide 25 mmol/L (20-31); Potassium 4.3 mmol/L (3.5-5.1); Sodium 140 mmol/L (136-145)
[2024-05-10 07:13] LABS: BUN/Creatinine Ratio 28.7 (10.0-20.0)
[2024-05-10 07:16] LABS: Blood Urea Nitrogen 33 mg/dL (9-23); Chloride 108 mmol/L (98-107); Glucose 129 mg/dL (74-106)
[2024-05-10 07:17] LABS: Basophils # (auto) 0.1 10 ^3/uL (0-0.2); Basophils % (auto) 0.8 % (0.0-2.0); Eosinophils # (auto) 0.2 10 ^3/uL (0-0.8); Eosinophils % (auto) 1.8 % (0.0-7.0); Hematocrit 35.4 % (36.0-46.0); Hemoglobin 11.8 g/dL (12.2-16.2); Lymphocytes # (auto) 1.6 10 ^3/uL (0.4-5.4); Mean Corpuscular Hemoglobin 30.9 pg (28.0-32.0); Mean Corpuscular Hgb Conc. 33.4 g/dL (32.0-36.0); Mean Corpuscular Volume 92.4 fL (80.0-100.0); Monocytes # (auto) 0.7 10 ^3/uL (0-1.3); Monocytes % (auto) 7.5 % (0.0-12.0); Neutrophils # (auto) 6.8 10 ^3/uL (1.6-8.6); Neutrophils % (auto) 72.9 % (37.0-80.0); Nucleated Red Blood Cells % 0.1 %; Platelet Count (auto) 137 10^3/uL (140-450); Red Blood Cells 3.83 10^6/uL (4.0-5.20); Red Cell Distribution Width 15.7 % (11.8-14.3); White Blood Cell 9.3 10^3/uL (4.4-10.8)
[2024-05-10 08:00] VITALS: PULSE 66; RESP 17; O2SAT 99
[2024-05-10] MEDS: FUROSEMIDE 20 MG TAB PO SCH (09:20)
[2024-05-10] MEDS: LISINOPRIL 20 MG TAB PO SCH (09:21)
[2024-05-10 09:47] VITALS: BP 113/61; PULSE 66; RESP 17; TEMP 97.8; O2SAT 99
[2024-05-10] MEDS ORDERED: AUG875T PO (12:23)
[2024-05-10 13:00] VITALS: BP 104/53; PULSE 58; RESP 17; TEMP 98.3; O2SAT 97
[2024-05-10 14:44] VITALS: BP 113/61
--- NOTE | 2024-05-10 15:32 | DVHCONRES ---
Date Seen: May 10, 2024 Resident Creating Document: IFEANYI HARRELL RESIDENT History of Present Illness 88 year old female presents to the ED with chief complaint of abdominal pain. Patient reports that she has been experiencing 10/10 diffuse abdominal pain worsened with movement for the past 2 days and with associated radiation to her back. Patient relays that her pain was sudden and is relieved when sitting down. Patient denies any N/V/D, fever, chills, dysuria, hematuria, dizziness, or chest pain. Patient seen and assessed at the bedside. Pain is better, tolerating diet well. Family History: FH: rheumatoid arthritis G8 MOTHER Allergies: Coded Allergies: NO KNOWN ALLERGIES (Unverified , 07/13/22) Home Meds Active Scripts Amoxicillin & Pot Clavulanate (AUGMENTIN TABLET) 875 Mg Tb, 875 MG PO BID for 10 Days, #20 TAB Prov:NOLAN SCHERER MD 05/10/24 Reported Medications Zinc Gluconate (Zinc) 50 Mg Tab, 50 MG PO DAILY, TAB 07/13/22 Omeprazole (Gnp Omeprazole) 20 Mg Tab, 40 MG PO AC, TAB 07/13/22 Melatonin (KP MELATONIN) 3 Mg Tab, 10 MG PO QPM, TAB 07/13/22 Lisinopril (Lisinopril) 20 Mg Tab, 20 MG PO DAILY, TAB 07/13/22 Levothyroxine Sodium (SYNTHROID TABLET) 50 Mcg Tb, 50 MCG PO DAILY, TAB 07/13/22 Furosemide (Lasix) 20 Mg Tb, 20 MG PO DAILY, TAB 07/13/22 Atorvastatin Calcium (Lipitor) 10 Mg Tab, 10 MG PO DAILY, TAB 07/13/22 Allopurinol (Allopurinol) 300 Mg Tab, 300 MG PO DAILY, TAB 07/13/22 Acetaminophen (Apap) 325 Mg Tab, 500 MG PO Q6HP, TAB 07/13/22 Acetaminophen (Acetaminophen) 160 Mg/5 Ml Rachael, 5 ML PO Q4HR, #120 ML 07/13/22 Current Medications Current Medications Medications (Trade) Dose Ordered Sig/Philip Route PRN Reason Start Time Stop Time Status Last Admin Sodium Chloride 1,000 ml @ 60 mls/hr [id number] IV 05/09/24 17:30 Acetaminophen/ Hydrocodone Bitart ([place] 5/325MG Tab) 1 tab Q4HP PRN PO MODERATE PAIN (4-6 PAIN SCALE) 05/09/24 17:30 05/09/24 18:59 Ondansetron HCl (Zofran) 4 mg Q4HP PRN IV NAUSEA / VOMITING 05/09/24 17:30 Nitroglycerin (Ntrostat Sublingual) 0.4 mg Q5MINP PRN SL FOR CHEST PAIN 05/09/24 17:30 Morphine Sulfate 2 mg Q30M PRN IV FOR CHEST PAIN 05/09/24 17:30 Metronidazole 100 ml @ 100 mls/hr Q8HR IV 05/09/24 22:00 05/10/24 06:33 Ceftriaxone Sodium 50 ml @ 100 mls/hr DAILY@09 IV 05/09/24 17:30 05/10/24 09:19 Furosemide (Lasix Tablet) 20 mg DAILY PO 05/10/24 10:00 05/10/24 09:20 Levothyroxine Sodium (Synthroid Tablet) 50 mcg QAM PO 05/10/24 07:00 05/10/24 06:34 Lisinopril (Zestril Tablet) 20 mg DAILY PO 05/10/24 10:00 05/10/24 09:21 Atorvastatin Calcium (Lipitor) 10 mg HS PO 05/09/24 22:00 05/09/24 23:00 Melatonin (Melatonin) 10 mg HS PO 05/09/24 22:00 05/09/24 22:59 Pantoprazole Sodium (Protonix Tablet) 40 mg DAILY@0600 PO 05/10/24 06:00 05/10/24 06:34 Vital Signs Vital Signs Date Time Temp Pulse Resp B/P (MAP) Pulse Ox O2 Delivery O2 Flow Rate FiO2 05/10/24 13:00 98.3 58 17 104/53 (70) 97 98.3 05/10/24 08:00 Room Air* 0 21 Physical Exam Patient lying in bed, in no acute distress General: Well-built, afebrile, palor, mucosae are moist Cardiovascular: Regular S1 and S2. No murmurs, gallops or rubs. No JVD elevation. No pedal edema Respiratory: Normal B/L air entry on room air. Clear lung sounds on auscultation Abdomen: Soft, left lower quadrant tenderness, nondistended, normoactive bowel sounds, no rebound tenderness, no organomegaly, no masses Genitourinary: Deferred MSK/skin: Mobilizes 4 limbs. Skin is dry and warm Neurological: No motor, no sensitive deficits, normal speech. Pupils are isocoric and reactive. Psych/Mental Status: A/Ox3 Labs/Diagnostic Data Labs Test 05/10/24 06:30 05/09/24 11:35 05/09/24 11:07 Range/Units White Blood Count 9.3 4.4-10.8 10^3/uL Red Blood Count 3.83 L 4.0-5.20 10^6/uL Hemoglobin 11.8 #L 12.2-16.2 g/dL Hematocrit 35.4 #L 36.0-46.0 % Mean Corpuscular Volume 92.4 80.0-100.0 fL Mean Corpuscular Hemoglobin 30.9 28.0-32.0 pg Mean Corpuscular Hemoglobin Concent 33.4 32.0-36.0 g/dL Red Cell Distribution Width 15.7 H 11.8-14.3 % Platelet Count 137 L 140-450 10^3/uL Mean Platelet Volume 9.5 6.9-10.8 fL Neutrophils (%) (Auto) 72.9 37.0-80.0 % Lymphocytes (%) (Auto) 17.0 10.0-50.0 % Monocytes (%) (Auto) 7.5 0.0-12.0 % Eosinophils (%) (Auto) 1.8 0.0-7.0 % Basophils (%) (Auto) 0.8 0.0-2.0 % Neutrophils # (Auto) 6.8 1.6-8.6 10 ^3/uL Lymphocytes # (Auto) 1.6 0.4-5.4 10 ^3/uL Monocytes # (Auto) 0.7 0-1.3 10 ^3/uL Eosinophils # (Auto) 0.2 0-0.8 10 ^3/uL Basophils # (Auto) 0.1 0-0.2 10 ^3/uL Nucleated Red Blood Cells 0.1 % Sodium Level 140 136-145 mmol/L Potassium Level 4.3 3.5-5.1 mmol/L Chloride Level 108 H 98-107 mmol/L Carbon Dioxide Level 25 20-31 mmol/L Anion Gap 7 5-15 Blood Urea Nitrogen 33 H 9-23 mg/dL Creatinine 1.15 H 0.550-1.02 mg/dL Glomerular Filtration Rate Calc 46 >90 mL/min BUN/Creatinine Ratio 28.7 H 10.0-20.0 Serum Glucose 129 H 74-106 mg/dL Calcium Level 9.0 8.7-10.4 mg/dL Total Bilirubin 1.0 0.2-1.0 mg/dL Aspartate Amino Transferase (AST) 21 13-40 U/L Alanine Aminotransferase (ALT) 25 7-40 U/L Alkaline Phosphatase 121 H 46-116 U/L Total Protein 6.7 5.7-8.2 g/dL Albumin 4.7 3.2-4.8 g/dL Lipase 26 12-53 U/L Urine Color Light-yellow Yellow Urine Clarity Clear Clear Urine pH 5.5 5.0-9.0 Urine Specific [place] 1.015 1.001-1.035 Urine Protein Negative Negative Urine Ketones Negative Negative Urine Blood Negative Negative /uL Urine Nitrite Negative Negative Urine Bilirubin Negative Negative Urine Urobilinogen Normal Negative mg/dL Urine Leukocyte Esterase 1+ Negative /uL Urine RBC 1 0 - 4 /hpf Urine Microscopic WBC 2 0-5 /HPF Urine Squamous Epithelial Cells Few <5 /hpf Urine Bacteria None seen None Seen /hpf Urine Glucose Normal Normal mg/dL Assessment Abdominal pain secondary to Acute sigmoid diverticulitis History of gastritis and hiatal hernia Anemia likely normocytic Elevated alkaline phosphatase Patient with upper endoscopy 07/23 shows 0.5 cm hiatal hernia and mild gastritis Last colonoscopy was more than 5 years back Plan: Continue antibiotics for diverticulitis, soft diet for now, patient would benefit from outpatient colonoscopy after the diverticulitis has resolved. Continue pantoprazole 40 mg daily Continue lactulose 30 mL p.o. daily Counseled regarding dietary rich in dietary fibers, foods, vegetables and avoiding red meat Continue soft diet Plan discussed with patient in which all questions have been answered Case discussed with Dr. Bone Plan discussed with: Patient IFEANYI HARRELL RESIDENT May 10, 2024 15:32
--- NOTE | 2024-05-11 07:17 | ECG ---
[facility] Test Date: 2024-05-09 Test Time: 11:16:07 Pat Name: MANN BARBOSA Department: ER Room: 0248 A Gender: F Pier Runner: ANA MARÍA : 1935 Requested By: NEERAJ JENNINGS Order Number: [id number] Reading MD: Claus Neal Measurements Intervals [place] Rate: 66 P: 32 [place]: 171 QRS: -22 QRSD: 91 T: 49 QT: 410 QTc: 430 Interpretive Statements Sinus rhythm Borderline left axis deviation Low voltage, extremity leads Consider anterior infarct * Electronically Signed On 05-11-2024 14:43:48 PST by Claus Neal Please click the below link to view image of tracing.
[2024-05-12 09:00] LABS: Hepatitis B Surface Antigen Negative (Negative)
[2024-05-12 09:21] LABS: Hepatitis C Antibody Negative (Negative)
== END 2024-05-10 15:09 | disposition home or self-care (01) | DRG 392 ==
LOC: ER 10:29 → OVERFLOW 17:20 → EAST 22:00
PROVIDERS: ADMIT Registered Nurse General Practice; ATTEND Registered Nurse General Practice
DX: K57.32 Diverticulitis of large intestine without perforation or abscess without bleeding (principal); I10 Essential (primary) hypertension; E78.5 Hyperlipidemia, unspecified; M10.9 Gout, unspecified; E03.9 Hypothyroidism, unspecified; E11.9 Type 2 diabetes mellitus without complications; R74.8 Abnormal levels of other serum enzymes; D64.9 Anemia, unspecified; Z79.84 Long term (current) use of oral hypoglycemic drugs; Z79.899 Other long term (current) drug therapy; Z79.1 Long term (current) use of non-steroidal anti-inflammatories (NSAID); Z90.710 Acquired absence of both cervix and uterus
CPT/HCPCS: 36415; 74176; 80048; 80053; 81001; 83690; 85025; 86803; 87340; 93005; 96365; G0378; J3490

== ENCOUNTER → 2025-01-19 | Outpatient (CLI) | payer OTHER, MEDICARE ==
[~2025-01-19] MED LIST changes: +AUG875T PO
[2025-01-19 15:35] LABS: Hematocrit 41.6 % (36.0-46.0); Hemoglobin 14.0 g/dL (12.2-16.2); Mean Corpuscular Hemoglobin 30.3 pg (28.0-32.0); Mean Corpuscular Volume 90.0 fL (80.0-100.0); Nucleated Red Blood Cells % 0.1 %
[2025-01-19 15:51] LABS: Alanine Aminotransferase 19 U/L (7-40); Albumin 4.4 g/dL (3.2-4.8); Alkaline Phosphatase 137 U/L (46-116); Anion Gap 11 (5-15); BUN/Creatinine Ratio 29.0 (10.0-20.0); Bilirubin, Total 0.7 mg/dL (0.2-1.0); Blood Urea Nitrogen 38 mg/dL (9-23); Calcium 9.1 mg/dL (8.7-10.4); Carbon Dioxide 31 mmol/L (20-31); Chloride 101 mmol/L (98-107); Cholesterol 175 mg/dL (< 200); Glucose 125 mg/dL (74-106); HDL Cholesterol 67 mg/dL (40-59); Potassium 3.9 mmol/L (3.5-5.1); Sodium 143 mmol/L (136-145); Total Protein 6.8 g/dL (5.7-8.2); Triglycerides 118 mg/dL (< 150)
== END | disposition home or self-care (01) ==
LOC: LAB 14:51
PROVIDERS: ATTEND Nurse Practitioner Family
DX: I10 Essential (primary) hypertension (principal); E11.9 Type 2 diabetes mellitus without complications; Z00.01 Encounter for general adult medical examination with abnormal findings
CPT/HCPCS: 36415; 80053; 80061; 82043; 82570; 83036; 84443; 85025